=== PATIENT | female | born 1995 | race Caucasian/White ===

== ENCOUNTER 2016-12-02 10:45 | Emergency (ER) | payer OTHER ==
[~2016-12-02] VITALS: Ht 167.6 cm; Wt 68.0 kg
[2016-12-02 10:49] VITALS: TEMP 37.2; Ht 167.6 cm; Wt 68.0 kg
[2016-12-02] MEDS ORDERED: LAMO25TA PO (11:04)
[2016-12-02] MEDS ORDERED: BCPILLS PO (11:04)
[2016-12-02] MEDS ORDERED: LXP/10 PO (11:04)
[2016-12-02] MEDS ORDERED: CLON0.5T3 PO (11:04)
[2016-12-02] MEDS ORDERED: PRLSR20 PO (11:04)
[2016-12-02] MEDS ORDERED: SODIUM CHLORIDE 0.9% 1000ML 1,000 ML IV STA (11:15)
[2016-12-02] MEDS ORDERED: ONDANSETRON INJ 2 MG/ML 2 ML VIAL IV STA (11:15)
[2016-12-02 11:54] LABS: BASO % 0.1 %; BASO ABS # 0.01 K/uL (0-0.2); COMPLETE YES; EOS % 0.9 %; HEMATOCRIT 42.2 % (37-47); IG% 0.1 %; LYMPH % 16.4 %; LYMPH ABS # 1.14 K/uL (1.2-3.4); MEAN CELL VOLUME 91.1 fL (80-100); MEAN CORPUSCULAR HEMOGLOBIN 31.3 pg (25-34); MEAN CORPUSCULAR HGB CONC 34.4 g/dl (32-36); MEAN PLATELET VOLUME 10.9 fL (7.4-10.4); MONO % 9.1 %; NEUT % 73.4 %; PLATELET COUNT 186 K/uL (130-400); RED BLOOD COUNT 4.63 M/uL (4.2-5.4); WHITE BLOOD COUNT 6.94 K/uL (4.8-10.8)
[2016-12-02 11:57] LABS: URINE APPEARANCE CLOUDY (CLEAR); URINE BILIRUBIN NEG (NEG); URINE COLOR YELLOW; URINE EPITHELIAL CELL AUTO >30 /lpf (0-5); URINE NITRITE NEG (NEG); URINE PH 6.5 (4.5-7.5); URINE SPECIFIC GRAVITY 1.015 (1.000-1.030); UROBILINOGEN NEG (NEG)
[2016-12-02 11:59] LABS: MANUAL MICROSCOPIC REQUIRED? NO; REVIEW REQ? NO
[2016-12-02 12:12] LABS: BUN/CREATININE RATIO 9.5 (10-20); CALCIUM 9.3 mg/dl (8.5-10.1); CREATININE 0.83 mg/dl (0.60-1.20); POTASSIUM 3.7 mmol/L (3.5-5.1)
[2016-12-02] MEDS ORDERED: OPTIRAY 320 IV PRN (12:45)
--- NOTE | 2016-12-02 14:17 | DIAGNOSTIC IMAGING REPORT ---
ABDOMEN AND PELVIS CT WITH IV AND ORAL CONTRAST CT DOSE: 271.94 mGy.cm HISTORY: Right lower quadrant pain. Diarrhea. Vomiting. TECHNIQUE: Multiaxial CT images of the abdomen and pelvis were performed following the use of intravenous and oral contrast. A dose lowering technique was utilized adhering to the principles of ALARA. COMPARISON STUDY: None. FINDINGS: The lung bases are clear. No pneumoperitoneum. No pneumatosis. The liver, gallbladder, spleen, adrenal glands, pancreas, and kidneys are unremarkable. No retroperitoneal lymphadenopathy. Mild bladder wall thickening. The uterus and right ovary are unremarkable. A 2.7 cm left ovarian cyst. Trace pelvic free fluid. This is likely physiologic. The visualized appendix is normal in caliber measuring up to 6 mm in diameter. No evidence for bowel obstruction. There is questionable mild thickening of the ascending colon. IMPRESSION: 1. No evidence for acute appendicitis. 2. Questionable mild thickening of the ascending colon. This raises the possibility of a mild nonspecific colitis. 3. A 2.7 cm left ovarian cyst. 4. Trace pelvic free fluid. This is likely physiologic in a female. Electronically signed by: Milan Covarrubias M.D. 12/02/2016 2:16 PM Dictated Date/Time: 12/02/2016 2:06 PM
[2016-12-02 14:54] VITALS: BP 108/66; PULSE 67; O2SAT 99
--- NOTE | 2016-12-02 18:38 | EMERGENCY ROOM VISIT NOTE ---
History Report prepared by Katy: Tom Wilks Under the Supervision of: Dr. Curly Do M.D. First contact with patient: 11:08 Chief Complaint: ABDOMINAL PAIN Stated Complaint: SEVERE PAIN IN LOWER ABDOMEN,DIARRHEA,VOMITING History of Present Illness The patient is a 21 year old female who presents to the Emergency Room with complaints of worsening right lower abdominal pain beginning three days ago. She describes her pain as "sharp". Her pain is worsened with touch. The patient also complains of diarrhea and a low grade fever. She states that she has been having about 10 episodes of diarrhea per day. The pain started as a generalized nondescript pain. Today it is now sharp and in the right lower quadrant. She has a history of GERD, and states that her symptoms of GERD have been worse over the past few days. The patient was seen at Urgent Care for her symptoms yesterday. She denies any urinary symptoms, or bloody stool. She states that she has noticed some dark coloration to her stool. The patient has no family history of Crohn's disease. She denies any recent travel outside of the country. She denies any recent antibiotic use. The patient denies any chance of . Source of History: patient Onset: Three days ago Position: abdomen (RLQ) Quality: sharp Timing: worsening Associated Symptoms: + fevers (low grade), + diarrhea (10 episodes per day) , No hematochezia, No urinary symptoms Review of Systems See HPI for pertinent positives & negatives. A total of 10 systems reviewed and were otherwise negative. Past Medical & Surgical Medical Problems: (1) No Known Active Medical Problems Family History No pertinent family history stated. Social History Smoking Status: Never Smoker Occupation Status: [employer] student Current/Historical Medications Scheduled Control Pills ( Control Pills), 1 TAB PO DAILY Escitalopram Oxalate (Lexapro), 15 MG PO DAILY Lamotrigine (Lamictal), 25 MG PO DAILY Omeprazole (Prilosec), 20 MG PO DAILY Scheduled PRN Clonazepam (Klonopin), 0.5 MG PO DAILY PRN for Anxiety Allergies Coded Allergies: Pistachio (Unverified Allergy, Unknown, ., 12/02/16) Physical Exam Vital Signs Date Time Temp Pulse Resp B/P (MAP) Pulse Ox O2 Delivery O2 Flow Rate FiO2 12/02/16 14:54 67 14 108/66 99 Room Air 12/02/16 14:07 51 19 135/64 92 Room Air 12/02/16 13:00 59 15 129/40 99 Room Air 12/02/16 10:49 37.2 72 20 120/72 98 Room Air Physical Exam Constitutional: Vital signs reviewed. Eyes: Pupils are equal round reactive to light. Conjunctiva are noninjected. ENT: Pharynx is clear without erythema or exudate. Mucous membranes are dry. Neck supple without meningeal signs. Respiratory: Clear to auscultation bilaterally. Breath sounds are equal bilaterally. Cardiovascular: Regular rate and rhythm. No rubs or gallops. GI: Soft, and nondistended. Bowel sounds are present. RLQ tenderness to palpation. No guarding. Musculoskeletal: No peripheral edema. No lower extremity tenderness. No CVA tenderness. Integumentary: No cyanosis. Neurological: The patient is awake and alert. No focal deficits. Psychiatric: Normal affect. Medical Decision & Procedures ER Provider Diagnostic Interpretation: CT results as stated below per my review and radiologist interpretation. ABDOMEN AND PELVIS CT WITH IV AND ORAL CONTRAST FINDINGS: The lung bases are clear. No pneumoperitoneum. No pneumatosis. The liver, gallbladder, spleen, adrenal glands, pancreas, and kidneys are unremarkable. No retroperitoneal lymphadenopathy. Mild bladder wall thickening. The uterus and right ovary are unremarkable. A 2.7 cm left ovarian cyst. Trace pelvic free fluid. This is likely physiologic. The visualized appendix is normal in caliber measuring up to 6 mm in diameter. No evidence for bowel obstruction. There is questionable mild thickening of the ascending colon. IMPRESSION: 1. No evidence for acute appendicitis. 2. Questionable mild thickening of the ascending colon. This raises the possibility of a mild nonspecific colitis. 3. A 2.7 cm left ovarian cyst. 4. Trace pelvic free fluid. This is likely physiologic in a female. Electronically signed by: Milan Covarrubias M.D. 12/02/2016 2:16 PM Dictated Date/Time: 12/02/2016 2:06 PM Laboratory Results 12/02/16 11:30 Red Blood Count 4.63, Mean Corpuscular Volume 91.1, Mean Corpuscular Hemoglobin 31.3, Mean Corpuscular Hemoglobin Concent 34.4, Mean Platelet Volume 10.9, Neutrophils (%) (Auto) 73.4, Lymphocytes (%) (Auto) 16.4, Monocytes (%) (Auto) 9.1, Eosinophils (%) (Auto) 0.9, Basophils (%) (Auto) 0.1, Neutrophils # (Auto) 5.09, Lymphocytes # (Auto) 1.14, Monocytes # (Auto) 0.63, Eosinophils # (Auto) 0.06, Basophils # (Auto) 0.01 12/02/16 11:30 Test 12/02/16 11:20 12/02/16 11:30 Urine Color YELLOW Urine Appearance CLOUDY (CLEAR) Urine pH 6.5 (4.5-7.5) Urine Specific [place] 1.015 (1.000-1.030) Urine Protein NEG (NEG) Urine Glucose (UA) NEG (NEG) Urine Ketones NEG (NEG) Urine Occult Blood NEG (NEG) Urine Nitrite NEG (NEG) Urine Bilirubin NEG (NEG) Urine Urobilinogen NEG (NEG) Urine Leukocyte Esterase MODERATE (NEG) Urine WBC (Auto) 5-10 /hpf (0-5) Urine RBC (Auto) 0-4 /hpf (0-4) Urine Hyaline Casts (Auto) 1-5 /lpf (0-5) Urine Epithelial Cells (Auto) >30 /lpf (0-5) Urine Bacteria (Auto) NEG (NEG) Urine Test NEG (NEG) White Blood Count 6.94 K/uL (4.8-10.8) Red Blood Count 4.63 M/uL (4.2-5.4) Hemoglobin 14.5 g/dL (12.0-16.0) Hematocrit 42.2 % (37-47) Mean Corpuscular Volume 91.1 fL (80-100) Mean Corpuscular Hemoglobin 31.3 pg (25-34) Mean Corpuscular Hemoglobin Concent 34.4 g/dl (32-36) Platelet Count 186 K/uL (130-400) Mean Platelet Volume 10.9 fL (7.4-10.4) Neutrophils (%) (Auto) 73.4 % Lymphocytes (%) (Auto) 16.4 % Monocytes (%) (Auto) 9.1 % Eosinophils (%) (Auto) 0.9 % Basophils (%) (Auto) 0.1 % Neutrophils # (Auto) 5.09 K/uL (1.4-6.5) Lymphocytes # (Auto) 1.14 K/uL (1.2-3.4) Monocytes # (Auto) 0.63 K/uL (0.11-0.59) Eosinophils # (Auto) 0.06 K/uL (0-0.5) Basophils # (Auto) 0.01 K/uL (0-0.2) RDW Standard Deviation 43.0 fL (36.4-46.3) RDW Coefficient of Variation 12.9 % (11.5-14.5) Immature Granulocyte % (Auto) 0.1 % Immature Granulocyte # (Auto) 0.01 K/uL (0.00-0.02) Anion Gap 8.0 mmol/L (3-11) Est Creatinine Clear Calc Drug Dose 101.2 ml/min Estimated GFR () 117.7 Estimated GFR (Non- 101.5 BUN/Creatinine Ratio 9.5 (10-20) Calcium Level 9.3 mg/dl (8.5-10.1) Total Bilirubin 0.5 mg/dl (0.2-1) Direct Bilirubin 0.1 mg/dl (0-0.2) Aspartate Amino Transf (AST/SGOT) 17 U/L (15-37) Alanine Aminotransferase (ALT/SGPT) 25 U/L (12-78) Alkaline Phosphatase 63 U/L (45-117) Total Protein 7.5 gm/dl (6.4-8.2) Albumin 3.9 gm/dl (3.4-5.0) Lipase 101 U/L (73-393) Date/Time Source Procedure Growth Status 12/02/16 14:50 Stool C.difficile Toxin B Gene (PCR) - Final No C. difficile toxin B gene detected Complete Laboratory results as reviewed by me. Medications Administered Medications (Trade) Dose Ordered Sig/Asia Route Start Time Stop Time Status Last Admin Dose Admin Ondansetron HCl (Zofran Inj) 4 mg NOW STAT IV 12/02/16 11:15 12/02/16 11:17 DC 12/02/16 11:51 4 MG Sodium Chloride 1,000 ml @ 999 mls/hr Q1H1M STAT IV 12/02/16 11:15 12/02/16 12:15 DC 12/02/16 11:40 999 MLS/HR ED Course 1111: The patient was evaluated in room C11B. A complete history and physical exam was performed. 1115: Ordered Sodium Chloride 1000 ml @ 999 mls/hr IV, Zofran Inj 4 mg IV. 1325: I discussed the patient's test results with her. 1426: Upon reevaluation, the patient appeared to have improvement of her symptoms. I discussed tonight's findings with her. She verbalized agreement of the treatment plan. The patient was discharged home. Medical Decision This is a 21-year-old female presents with right-sided abdominal pain. Differential diagnosis includes appendicitis, ileitis, colitis, inflammatory bowel disease, enteritis, ectopic , ovarian cyst. I did perform a limited focused review of portions of the patient's old chart on the electronic medical record. The patient has had no prior visits to this hospital. I did evaluate the patient as noted above. The patient is presenting with a history concerning for acute appendicitis except for opiates diarrhea. She initially had some generalized abdominal pain which is now migrated into the right lower quadrant where she is tender. She has had vomiting and loss of appetite but she has also had very watery loose diarrhea. IV access was established. I did treat patient with Zofran and normal saline IV. She declined any pain medicines at this time. I did order and personally review the patient's urinalysis as described above. Urine test is negative. I did order and review the patient's blood work as noted in the electronic medical record. Her white blood cell count is not elevated. I did order a CT of the abdomen and pelvis. I did review the images myself as well as the radiology report as described above. The patient has findings consistent with a mild ascending colitis. I did discuss the test results with the patient. I did explain to her that this could be viral in nature versus possible inflammatory bowel disease or even bacterial. She denies any recent antibiotic use. I did send a C. difficile antigen test for stool which was negative. Stool culture is pending. At this time I did recommend expectant management and follow up with gastroenterology. She denies any history of inflammatory bowel disease in the family. She was discharged in good condition. Medication Reconcilliation Current Medication List: was personally reviewed by me Blood Pressure Screening Patient's blood pressure: Normal blood pressure Blood pressure disposition: Did not require urgent referral Impression Primary Impression: Colitis Scribe Attestation The scribe's documentation has been prepared under my direct and personally reviewed by me in its entirety. I confirm that the note above accurately reflects all work, treatment, procedures, and medical decision making performed by me. Departure Information Dispostion Home / Self-Care Referrals No Doctor, Assigned (PCP) Forms HOME CARE DOCUMENTATION FORM, IMPORTANT VISIT INFORMATION Patient Instructions My [facility] Additional Instructions You have been examined and treated today on an emergency basis only. This is not a substitute for, or an effort to provide, complete comprehensive medical care. It is impossible to recognize and treat all injuries or illnesses in a single emergency department visit. It is therefore important that you follow up closely with [facility] and/or gastroenterology. Call as soon as possible for an appointment. Return for worsening symptoms or if you develop high fever, vomiting, blood in your stool or any other concerning symptoms. Drink plenty of fluids and eat a very bland diet.
== END 2016-12-02 15:00 | disposition home or self-care (01) ==
LOC: C.EDB 10:47 → C.EDC 15:00
DX: K52.9 Noninfective gastroenteritis and colitis, unspecified (principal); K21.9 Gastro-esophageal reflux disease without esophagitis; Z79.3 Long term (current) use of hormonal contraceptives; Z79.899 Other long term (current) drug therapy